=== PATIENT | male | born 1985 | race Caucasian/White ===

== ENCOUNTER 2021-08-11 20:45 | Emergency (ER) | payer BC, OTHER | END 2021-08-11 22:25 | disposition home or self-care (01) | LOC: JD.ED 20:45 | DX: R07.89 Other chest pain (principal); E78.00 Pure hypercholesterolemia, unspecified; Z28.310 Unvaccinated for COVID-19; Z79.899 Other long term (current) drug therapy | CPT/HCPCS: 36415; 71046; 71046-26; 80053; 84484; 85025; 85379; 93005; 99285-25 ==

== ENCOUNTER 2022-08-04 10:46 | Emergency (ER) | payer BC ==
[2022-08-04] MEDS ORDERED: Iopamidol 755 Mg/ML 100 ML Bottle IVPUSH ONE (11:18)
[2022-08-04] MEDS ORDERED: Sodium Chloride 0.9% 10 ML Syringe FLUSH PRN (11:18)
[2022-08-04] MEDS ORDERED: Alteplase 81 MG in Infusion 1 VIAL IV ONE (11:30)
[2022-08-04] MEDS ORDERED: Sodium Chloride 0.9% 100 ML IV SCH (11:30)
[2022-08-04] MEDS ORDERED: LORazepam 2 MG/ML SDV IVPUSH ONE (11:54)
[2022-08-04] MEDS ORDERED: LORazepam 2 MG/ML SDV ONE (11:56)
[2022-08-04] MEDS ORDERED: Acetaminophen 325 MG Tab PO ONE (13:01)
== END 2022-08-04 14:20 ==
LOC: JD.ED 10:46
DX: R27.0 Ataxia, unspecified (principal); R47.81 Slurred speech; E78.00 Pure hypercholesterolemia, unspecified; Z79.899 Other long term (current) drug therapy
CPT/HCPCS: 36415; 37195; 70450; 70496; 70498; 70551; 80053; 84484; 85025; 85379; 85610; 85730; 93005; 96374; 99285; A9270; J2060; J2997; J3490; Q9967; 93010

== ENCOUNTER 2022-08-10 09:27 | Emergency (ER) | payer BC ==
[2022-08-10] MEDS ORDERED: Haloperidol Lactate 5 MG/ML SDV IM ONE (10:44)
== END 2022-08-10 12:40 | disposition home or self-care (01) ==
LOC: JD.ED 09:27
DX: G43.909 Migraine, unspecified, not intractable, without status migrainosus (principal); E78.00 Pure hypercholesterolemia, unspecified; E66.9 Obesity, unspecified; Z79.899 Other long term (current) drug therapy; Z68.35 Body mass index [BMI] 35.0-35.9, adult; Z86.16 Personal history of COVID-19
CPT/HCPCS: 70450; 82947; 93005; 96372; 99284; J1630